=== PATIENT | female | born 1965 | race Caucasian/White ===

== ENCOUNTER 2020-07-10 09:56 | Outpatient (CLI) | payer BC, SELFPAY ==
[2020-07-10 10:29] LABS: Basophils Percent Auto 0.6 % (0.2-1.2); Eosinophils Absolute Auto 0.2 K/mm3 (0-0.3); Hematocrit 38.4 % (37.0-47.0); Hemoglobin 12.3 g/dL (12.0-15.0); Immature Granulocyte Absolute 0.01 K/mm3 (0.00-0.031); Immature Granulocyte Percent A 0.2 % (0-0.5); Lymphocytes Absolute Auto 1.43 K/mm3 (0.9-3.2); Lymphocytes Percent Auto 28.4 % (18.3-44.2); Mean Corpuscular Hemoglobin 29.1 pg (26-34); Mean Platelet Volume 10.2 fl (7.4-10.4); Monocytes Absolute Auto 0.5 K/mm3 (0.1-0.6); Monocytes Percent Auto 10.1 % (2.6-8.5); Neutrophils Absolute Auto 2.9 K/mm3 (1.3-6.7); Neutrophils Percent Auto 56.7 % (45.5-73.1); Platelet Count Result 258 k/mm3 (150-375); Red Blood Count 4.22 M/mm3 (4.2-5.4); Red Cell Distribution Width 13.8 % (11.5-14.5)
[2020-07-10 10:38] LABS: Add Urine Microscopic? YES; Appearance Urine Clear (Clear); Bacteria Urine Trace /hpf; Bilirubin Urine Negative (Negative); Blood Urine Negative (Negative); Color Urine Yellow (Yellow); Glucose Urine UA Negative (Negative); Ketones Urine Negative (Negative); Leukocyte Esterase Ur 3+ LEU/UL (NEGATIVE); Mucus Urine Few /lpf; Nitrate Urine Negative (Negative); Protein Urine Negative (Negative); Squamous Epithelial Cell Urine Moderate /hpf (Few); Transitional Epi Cells Urine Rare /hpf (None Seen); Urobilinogen Urine Negative mg/dL (<2.0); WBC Urine 16-20 /hpf (0-3)
[2020-07-10 10:45] LABS: Alanine Aminotransferase 22 U/L (4-35); Albumin Level 4.3 g/dL (3.5-5.1); Alkaline Phosphatase 88 U/L (38-126); Anion Gap 4 mmol/L (8-16); Aspartate Amino Transferase 32 U/L (14-36); Bilirubin,Total 0.8 mg/dL (0.2-1.3); Blood Urea Nitrogen 16 mg/dL (7-17); Calcium 9.7 mg/dL (8.4-10.2); Carbon Dioxide 31 mmol/L (22-30); Chloride 104 mmol/L (98-107); Cholesterol 215 mg/dL (0-200); Estimated Glomerular Filt Rate > 60; Glucose 93 mg/dL (65-105); HDL Direct 90 mg/dL; Potassium 4.4 mmol/L (3.4-5.0); Sodium 139 mmol/L (137-145); Triglycerides 67 mg/dL (<150)
[2020-07-10 10:56] LABS: LDL Cholesterol Direct 86 mg/dL
[2020-07-10 11:21] LABS: Vitamin D 25 Hydroxy 65.2 ng/mL
[2020-07-10 11:49] LABS: Folic Acid 10.2 ng/mL (2.76->20); Vitamin B12 > 1000.0 pg/mL (239-931)
[2020-07-10 12:00] LABS: Iron 157 ug/dL (37-170); Percent Iron Saturation 51 % (20-50)
== END 2020-07-10 09:57 | disposition home or self-care (01) ==
PROVIDERS: PCP Family Medicine; Visit Provider Family Medicine
DX: Z00.00 Encounter for general adult medical examination without abnormal findings (principal)
CPT/HCPCS: 36415; 80053; 80061; 81001; 82306; 82607; 82746; 83540; 83550; 84443; 85025

== ENCOUNTER 2022-05-16 11:10 | Outpatient (CLI) | payer BC, SELFPAY ==
[2022-05-16 12:32] LABS: Basophils Percent Auto 0.8 % (0.2-1.2); Eosinophils Absolute Auto 0.3 K/mm3 (0-0.3); Hematocrit 38.3 % (37.0-47.0); Hemoglobin 12.1 g/dL (12.0-15.0); Immature Granulocyte Absolute 0.01 K/mm3 (0.00-0.031); Immature Granulocyte Percent A 0.2 % (0-0.5); Lymphocytes Absolute Auto 1.36 K/mm3 (0.9-3.2); Lymphocytes Percent Auto 27.8 % (18.3-44.2); Mean Corpuscular HGB Conc 31.6 g/dl (32-36); Mean Corpuscular Hemoglobin 29.8 pg (26-34); Mean Corpuscular Volume 94.3 fl (80-100); Monocytes Absolute Auto 0.5 K/mm3 (0.1-0.6); Neutrophils Absolute Auto 2.7 K/mm3 (1.3-6.7); Neutrophils Percent Auto 54.2 % (45.5-73.1); Platelet Count Result 241 k/mm3 (150-375); Red Blood Count 4.06 M/mm3 (4.2-5.4); Red Cell Distribution Width 14.4 % (11.5-14.5); White Blood Count 4.9 K/mm3 (4.5-10.0)
[2022-05-16 12:34] LABS: Appearance Urine Clear (Clear); Bilirubin Urine Negative (Negative); Blood Urine Negative (Negative); Color Urine Yellow (Yellow); Glucose Urine UA Negative (Negative); Ketones Urine Negative (Negative); Leukocyte Esterase Ur 1+ LEU/UL (NEGATIVE); Nitrate Urine Negative (Negative); Protein Urine Negative (Negative); Urobilinogen Urine 0.2 mg/dL (<2.0); pH Urine 5.5 (5.0-9.0)
[2022-05-16 12:43] LABS: Alanine Aminotransferase 23 U/L (6-35); Albumin Level 4.2 g/dL (3.5-5.1); Alkaline Phosphatase 75 U/L (38-126); Anion Gap 8 mmol/L (8-16); Aspartate Amino Transferase 32 U/L (14-36); Bilirubin,Total 0.7 mg/dL (0.2-1.3); Blood Urea Nitrogen 21 mg/dL (7-17); Calcium 9.2 mg/dL (8.4-10.2); Carbon Dioxide 27 mmol/L (22-30); Chloride 103 mmol/L (98-107); Cholesterol 199 mg/dL (0-200); Estimated Glomerular Filt Rate > 60; Glucose 78 mg/dL (65-110); HDL Direct 96 mg/dL; Potassium 4.3 mmol/L (3.4-5.0); Sodium 138 mmol/L (137-145); Triglycerides 37 mg/dL (<150)
[2022-05-16 12:45] LABS: Mucus Urine Rare /lpf; RBC Urine 0-2 /hpf (0-2); Squamous Epithelial Cell Urine Occasional /hpf (Few); WBC Urine 0-3 /hpf (0-3)
[2022-05-16 12:55] LABS: LDL Cholesterol Direct 68 mg/dL
[2022-05-16 13:23] LABS: Add Urine Microscopic? YES
[2022-05-16 14:00] LABS: Folic Acid 18.8 ng/mL (2.76->20); Vitamin B12 > 1000.0 pg/mL (239-931)
== END 2022-05-16 11:11 | disposition home or self-care (01) ==
LOC: ANHLAB 11:12
PROVIDERS: PCP Family Medicine; Visit Provider Nurse Practitioner Family
DX: Z00.00 Encounter for general adult medical examination without abnormal findings (principal); Z13.0 Encounter for screening for diseases of the blood and blood-forming organs and certain disorders involving the immune mechanism; Z13.6 Encounter for screening for cardiovascular disorders; Z13.29 Encounter for screening for other suspected endocrine disorder
CPT/HCPCS: 36415; 80053; 80061; 81001; 82607; 82746; 84443; 85025

== ENCOUNTER 2022-10-09 09:56 | Outpatient (CLI) | payer BC, SELFPAY ==
--- NOTE | 2022-10-09 11:00 | NEURO_ITS ---
Impression: # Complains of pain in right hand. # Mild evolving right Carpal Tunnel Syndrome, sensory more than motor. # No ulnar neuropathy. # Normal needle/EMG exam. # Clinical correlation recommended. Motor Nerve Conduction Upper Extremities Median Nerve Conduction Velocity (m/sec) Terminal Latency (msec) Response Voltage(mV) Elbow-Wrist Wrist Elbow Wrist Right 58 3.4 7 6 Left Ulnar Nerve Conduction Velocity (m/sec) Terminal Latency (msec) Response Voltage(mV) Above Elbow Below Elbow Wrist Above Elbow Below Elbow Wrist Right 56 2.4 6 7 Left F-Wave Latency Median (ms) Ulnar (ms) Right 27.8 26.5 Left Sensory Nerve Conduction Upper Extremities Median Nerve Stimulation Terminal Latency (msec) Wrist/Digit Response Voltage (uV) Wrist Right 4.0/4.0 25/45 Left Ulnar Nerve Stimulation Terminal Latency (msec) Wrist/Digit Response Voltage (uV) Wrist Right 2.9 31 Left Radial Nerve Terminal Latency (msec) Response Voltage(mV) Right 2.4 23 Left Left Right Muscles Examined Fibrillation Fasciculation Scarcity Voltage Duration Left Right Left Right Left Right Left Right Left Right Deltoid X Biceps X Brachioradialis Triceps X Pronator Teres X Ext Indicis X Ext Digitorum X Abd Poll Brev X 1st Dorsal Interosseus X Abd Dig Min MTDD
== END 2022-10-09 09:57 | disposition home or self-care (01) ==
LOC: ANHNEURO 09:57
PROVIDERS: PCP Family Medicine; Visit Provider Nurse Practitioner Family
DX: R20.0 Anesthesia of skin (principal); G56.01 Carpal tunnel syndrome, right upper limb
CPT/HCPCS: 95886; 95909

== ENCOUNTER 2023-07-04 09:19 | Outpatient (CLI) | payer BC, SELFPAY ==
[2023-07-04 10:11] LABS: Eosinophils Absolute Auto 0.1 K/mm3 (0-0.3); Eosinophils Percent Auto 3.4 % (0-4.4); Hematocrit 37.9 % (37.0-47.0); Immature Granulocyte Absolute 0.01 K/mm3 (0.00-0.031); Immature Granulocyte Percent A 0.2 % (0-0.5); Lymphocytes Absolute Auto 1.23 K/mm3 (0.9-3.2); Mean Corpuscular HGB Conc 31.7 g/dl (32-36); Mean Corpuscular Hemoglobin 29.4 pg (26-34); Mean Corpuscular Volume 92.9 fl (80-100); Mean Platelet Volume 10.9 fl (7.4-10.4); Monocytes Absolute Auto 0.5 K/mm3 (0.1-0.6); Neutrophils Absolute Auto 2.2 K/mm3 (1.3-6.7); Neutrophils Percent Auto 53.4 % (45.5-73.1); Platelet Count Result 234 k/mm3 (150-375); Red Blood Count 4.08 M/mm3 (4.2-5.4); White Blood Count 4.1 K/mm3 (4.5-10.0)
[2023-07-04 10:15] LABS: Appearance Urine Clear (Clear); Bacteria Urine None Seen /hpf; Bilirubin Urine Negative (Negative); Blood Urine Negative (Negative); Color Urine Yellow (Yellow); Glucose Urine UA Negative (Negative); Ketones Urine Negative (Negative); Leukocyte Esterase Ur Trace LEU/UL (NEGATIVE); Nitrate Urine Negative (Negative); Non Pathogenic Casts 0-2; Protein Urine Negative (Negative); RBC Urine 0-2 /hpf (0-2); Specific Grav Ur 1.012 (1.001-1.035); Squamous Epithelial Cell Urine None seen /hpf (Few); Urobilinogen Urine 0.2 mg/dL (<2.0); WBC Urine 0-5 /hpf (0-3); pH Urine 6.5 (5.0-9.0)
[2023-07-04 10:20] LABS: Alanine Aminotransferase 35 U/L (6-35); Albumin Level 4.3 g/dL (3.5-5.1); Alkaline Phosphatase 70 U/L (38-126); Anion Gap 5 mmol/L (8-16); Aspartate Amino Transferase 50 U/L (14-36); Bilirubin,Total 0.8 mg/dL (0.2-1.3); Blood Urea Nitrogen 29 mg/dL (7-17); Calcium 9.1 mg/dL (8.4-10.2); Carbon Dioxide 31 mmol/L (22-30); Chloride 103 mmol/L (98-107); Cholesterol 208 mg/dL (0-200); Estimated Glomerular Filt Rate > 60; Glucose 85 mg/dL (65-110); HDL Direct 103 mg/dL; Potassium 4.8 mmol/L (3.4-5.0); Sodium 139 mmol/L (137-145); Triglycerides 34 mg/dL (<150)
[2023-07-04 10:23] LABS: Add Urine Microscopic? YES
[2023-07-04 10:30] LABS: LDL Cholesterol Direct 79 mg/dL
[2023-07-04 10:50] LABS: Thyroid Stimulating Hormone 0.066 uIU/mL (0.465-4.680)
[2023-07-04 11:27] LABS: Folic Acid > 20.0 ng/mL (2.76->20)
== END 2023-07-04 09:20 | disposition home or self-care (01) ==
PROVIDERS: PCP Family Medicine; Visit Provider Nurse Practitioner Family
DX: Z13.0 Encounter for screening for diseases of the blood and blood-forming organs and certain disorders involving the immune mechanism (principal); Z13.29 Encounter for screening for other suspected endocrine disorder; Z00.00 Encounter for general adult medical examination without abnormal findings; E53.8 Deficiency of other specified B group vitamins
CPT/HCPCS: 36415; 80053; 80061; 81001; 82607; 82746; 84443; 85025

== ENCOUNTER 2023-07-31 06:53 | Outpatient (CLI) | payer BC, SELFPAY ==
[2023-07-31 08:11] LABS: Free T4 Free Thyroxine 0.99 ng/mL (0.78-2.19)
[2023-07-31 08:18] LABS: Total Triiodothyronine (T3) 1.23 NG/ML (0.97-1.69)
== END 2023-07-31 06:54 | disposition home or self-care (01) ==
PROVIDERS: PCP Family Medicine; Visit Provider Nurse Practitioner Family
DX: R79.89 Other specified abnormal findings of blood chemistry (principal)
CPT/HCPCS: 36415; 84439; 84443; 84480

== ENCOUNTER → 2024-06-14 13:18 | Outpatient (CLI) | payer BC, SELFPAY ==
--- NOTE | ~2024-06-14 | XR_ITS ---
XR finger 5th RT min 2V 06/14/2024 13:27 Indication: Right fifth finger pain after injury Procedure: 4 views right fifth finger Comparison: No prior studies for comparison. Findings: There is a displaced avulsion fracture dorsal base fifth distal phalanx with intra-articula r extension. Mild soft tissue swelling. Impression: 1: Intra-articular displaced fracture right fifth distal phalanx involving the dorsal base. Reviewed, dictated and finalized at location B. Impression: 1: Intra-articular displaced fracture right fifth distal phalanx involving the dorsal base.
== END ==
LOC: EXPTROY 13:19
PROVIDERS: PCP Nurse Practitioner Family; Visit Provider Nurse Practitioner Family
DX: S62.636A Displaced fracture of distal phalanx of right little finger, initial encounter for closed fracture (principal); X58.XXXA Exposure to other specified factors, initial encounter
CPT/HCPCS: 73140

== ENCOUNTER 2024-09-30 11:22 | Outpatient (CLI) | payer BC, SELFPAY ==
--- NOTE | ~2024-09-30 | XR_ITS ---
Right Knee Technique: AP, lateral, and sunrise views were obtained. Clinical History: Pain Findings: No fracture or dislocation is seen. Osseous alignment is anatomic. Joint spaces are preserv ed without degenerative or erosive change. Soft tissues are unremarkable. No joint effusion is seen. Impression: Unremarkable right knee radiographs. Reviewed, dictated and finalized at location . ATERIA ATTENDANT Impression: Unremarkable right knee radiographs.
[2024-09-30 12:31] LABS: Basophils Absolute Auto 0.1 K/mm3 (0.0-0.1); Basophils Percent Auto 0.6 % (0.2-1.2); Eosinophils Absolute Auto 0.1 K/mm3 (0-0.3); Eosinophils Percent Auto 1.7 % (0-4.4); Hematocrit 40.2 % (37.0-47.0); Hemoglobin 12.9 g/dL (12.0-15.0); Immature Granulocyte Absolute 0.04 K/mm3 (0.00-0.031); Immature Granulocyte Percent A 0.5 % (0-0.5); Lymphocytes Absolute Auto 1.54 K/mm3 (0.9-3.2); Lymphocytes Percent Auto 18.6 % (18.3-44.2); Mean Corpuscular HGB Conc 32.1 g/dl (32-36); Mean Corpuscular Hemoglobin 30.2 pg (26-34); Mean Corpuscular Volume 94.1 fl (80-100); Mean Platelet Volume 10.5 fl (7.4-10.4); Monocytes Absolute Auto 0.8 K/mm3 (0.1-0.6); Neutrophils Absolute Auto 5.8 K/mm3 (1.3-6.7); Neutrophils Percent Auto 69.6 % (45.5-73.1); Platelet Count Result 285 k/mm3 (150-375); Red Blood Count 4.27 M/mm3 (4.2-5.4); Red Cell Distribution Width 14.8 % (11.5-14.5); White Blood Count 8.3 K/mm3 (4.5-10.0)
[2024-09-30 12:36] LABS: Add Urine Microscopic? YES; Appearance Urine Cloudy (Clear); Bacteria Urine 2+ /hpf; Bilirubin Urine Negative (Negative); Blood Urine Negative (Negative); Color Urine Yellow (Yellow); Glucose Urine UA Negative (Negative); Ketones Urine Negative (Negative); Leukocyte Esterase Ur Negative LEU/UL (Negative); Nitrate Urine Negative (Negative); Non Pathogenic Casts 0-2; Protein Urine Negative (Negative); Specific Grav Ur 1.011 (1.001-1.035); Squamous Epithelial Cell Urine Many /hpf (Few); Urobilinogen Urine 0.2 mg/dL (<2.0); WBC Urine 0-5 /hpf (0-3)
[2024-09-30 12:44] LABS: Alanine Aminotransferase 30 U/L (6-35); Albumin Level 4.4 g/dL (3.5-5.1); Alkaline Phosphatase 54 U/L (38-126); Anion Gap 5 mmol/L (4-12); Aspartate Amino Transferase 39 U/L (14-36); Bilirubin,Total 0.8 mg/dL (0.2-1.3); Blood Urea Nitrogen 20 mg/dL (7-17); Calcium 9.1 mg/dL (8.4-10.2); Carbon Dioxide 28 mmol/L (22-30); Chloride 105 mmol/L (98-107); Cholesterol 208 mg/dL (0-200); Estimated Glomerular Filt Rate > 60; Glucose 82 mg/dL (65-110); HDL Direct 83 mg/dL; Potassium 4.1 mmol/L (3.4-5.0); Sodium 138 mmol/L (137-145); Triglycerides 75 mg/dL (<150)
[2024-09-30 12:56] LABS: LDL Cholesterol Direct 86 mg/dL
[2024-09-30 13:19] LABS: Thyroid Stimulating Hormone Reflex 0.076 uIU/mL (0.465-4.68)
[2024-09-30 17:33] LABS: Free T4 Free Thyroxine Reflex 0.87 ng/dL (0.78-2.19)
[2024-09-30 18:08] LABS: Rheumatoid Factor < 12.0 IU/ML (<12)
[2024-09-30 18:21] LABS: Total Triiodothyronine (T3) 1.25 NG/ML (0.97-1.69)
[2024-10-03 16:08] LABS: ANA Cascade Screen NEGATIVE (NEGATIVE)
== END 2024-09-30 11:23 | disposition home or self-care (01) ==
PROVIDERS: PCP Nurse Practitioner Family; Visit Provider Nurse Practitioner Family
DX: M25.561 Pain in right knee (principal); Z13.0 Encounter for screening for diseases of the blood and blood-forming organs and certain disorders involving the immune mechanism; Z13.29 Encounter for screening for other suspected endocrine disorder; Z00.00 Encounter for general adult medical examination without abnormal findings; Z13.6 Encounter for screening for cardiovascular disorders; E53.8 Deficiency of other specified B group vitamins; M25.50 Pain in unspecified joint
CPT/HCPCS: 36415; 73562; 80053; 80061; 81001; 82607; 84439; 84443; 84480; 85025; 86038; 86225; 86235; 86364; 86430

== ENCOUNTER 2024-10-21 13:35 | Outpatient (CLI) | payer BC, SELFPAY ==
[2024-10-21 15:23] LABS: Free T4 Free Thyroxine 0.99 ng/dL (0.78-2.19)
== END 2024-10-21 13:36 | disposition home or self-care (01) ==
LOC: ANHLAB 13:36
PROVIDERS: PCP Nurse Practitioner Family; Visit Provider Nurse Practitioner Family
DX: R79.89 Other specified abnormal findings of blood chemistry (principal)
CPT/HCPCS: 36415; 84439; 84443

== ENCOUNTER 2025-03-30 13:49 | Outpatient (CLI) | payer BC, SELFPAY ==
--- NOTE | ~2025-03-30 | XR_ITS ---
XR hand BI arthritis min 3V Ordering provider: Treva Cannon NP History: . M25.541 - Pain in joints of right hand . Comparison: None. FINDINGS: RIGHT HAND: --BONES: No acute fracture or dislocation. No osteopenia. --JOINT SPACES: Narrowing of multiple distal and proximal interphalangeal joints with marginal osteop hytes. --SOFT TISSUES: Soft tissue swelling in multiple joints. LEFT HAND: --BONES: No acute fracture or dislocation. --JOINT SPACES: Narrowing of multiple joints in the distal interphalangeal joints. Marginal osteophyt es are noted. --SOFT TISSUES: Unremarkable. No soft tissue swelling or nodules. IMPRESSION: 1. No acute osseous abnormality bilateral hands. 2. Polyarticular osteoarthritic changes. Reviewed, dictated and finalized at location A.
--- OUTSIDE RECORDS SUMMARY | 2025-03-30 14:25 | XMS_ITS | Referral Summary ---
Author Organization [facility] Office Center Address [address] [place] [address] Care Team Providers Care Manager Procurement Name Role Phone Antonio Davidson MD Primary Care Provider [phone] Encounters Date Type Department Care Team Description 03/17/2025 Telephone [facility] Obstetrical Gynecology [facility] [address] Tim Chen MD from Last 3 Months Allergies No known active allergies Medications aloe vera gel Rx: Aloe Vera - Gel Active vitamin B complex (B COMPLEX 1 ORAL) Active FLUoxetine (PROzac) 20 mg capsuleIndicat ions:Well woman exam Take 1 capsule (20 mg total) by mouth daily 90 capsule 3 4 Active estradiol-nore thindrone acet (CombiPatch) 0.05-0.14 mg/24 hrIndications: Menopausal symptoms Place 1 patch on the skin 2 (two) times a week 24 patch 5 Active estradiol-nore thindrone acet (CombiPatch) 0.05-0.14 mg/24 hrIndications: Menopausal symptoms APPLY 1 PATCH ON THE SKIN TWICE A WEEK (MUST CALL TO SCHEDULE APPOINTMENT FOR FUTURE REFILLS) 24 patch 1 4 03/17/20 25 Discontin ued(Reord er) Active Problems No known active problems Social History Tobacco Use Types Packs/Day Years Used Date Smoking Tobacco: Never Alcohol Use Standard Drinks/Week Comments Yes 0 (1 standard drink = 0.6 oz pur e alcohol) AUDIT-C Answer Date Recorded Frequency of Alcohol Consumption Monthly or less 07/18/2020 Average Number of Drinks 1 or 2 020 Frequency of Binge Drinking Never 06/21 Personal Safety Answer Date Recorded Getting School Help Needed Not on file 10/04 Comments No Sex and Gender Information Value Date Recorded Sex Assigned at Not on file Legal Sex Female 6:27 AM CRAP SHOOTER Gender Identity Not on file Sexual Orientation Not on file Last Filed Vital Signs Vital Sign Reading Time Taken Comments Blood Pressure 116/78 04/01/2024 1:57 PM CDT Pulse 62 12/14/2012 2:40 PM CRAP SHOOTER Temperature 37.1 C (98.8 F) 12/14/2012 2:40 PM CRAP SHOOTER Respiratory Rate - - Oxygen Saturation 96% 12/14/2012 2:40 PM CRAP SHOOTER Inhaled Oxygen Concentration - - Weight 61.2 kg (135 lb) 04/01/2024 1:57 PM CDT Height 160 cm (5' 2.99) 04/01/2024 1:57 PM CDT Body Mass Index 23.92 04/01/2024 1:57 PM CDT Plan of Treatment Not on file Procedures Procedure Name Priority Date/Time Associated Diagnosis Comments SCREENING MAMMOGRAM BILATERAL W RICHAR W IMPLANTS Schedule Routine, Read Routine (OP Routine) 03/29/2024 2:26 PM CDT Encounter for screening mammogram for malignant neoplasm of breast PAP AND HIGH RISK HPV, REFLEX TO GENOTYPING Routine 09/05/2022 11:32 AM CRAP SHOOTER Well woman exam from Last 3 Months or Most Recently Relevant to Health Maintenance Results * Screening Mammogram Bilateral W Richar W Implants (03/29/2024 2:26 PM CDT) Anatomical Region Laterality Modality Breast Bilateral Mammography Impressions 03/29/2024 2:39 PM CDT BI-RADS ATLAS category (overall): 2 - Benign There is no mammographic evidence of malignancy. A 1 year screening mammogram is recommended. The patient has been or will be contacted. We recommend annual screening mammography for women at average risk of breast cancer beginning at age 40, based on guidelines of the [employer] (ACR Practice Parameter for the Performance of Screening and Diagnostic Mammography) and [employer]. For women with and elevated risk of breast cancer, please refer to the ACR Practice Parameter for specific screening recommendations. The patient will be entered into a reminder system with a target due date of 1 year for her next screening exam. Narrative 03/29/2024 2:39 PM CDT Screening Mammogram Bilateral W Richar W Implants: 03/29/24 The study was acquired using full field digital technology and interpreted from soft copy. 2D digital mammographic views, as well as 3D digital tomosynthesis were performed in the CC and MLO projections. CLINICAL: Encounter for screening mammogram for malignant neoplasm of breast. No relevant medical history has been documented for this patient. History of breast cancer in Sister. COMPARISONS: 11/26/2022 Screening Mammogram Bilateral W Richar W Implants 06/10/2021 Screening Mammogram Bilateral W Richar W Implants 06/29/2018 Screening Mammogram 2D Bilateral 09/30/2016 Screening Mammogram Bilateral W Richar BREAST TISSUE: The breasts are heterogeneously dense, which may obscure small masses. FINDINGS: Bilateral breast subpectoral saline implants are stable in appearance and intact. The presence of implants limits the sensitivity of mammography. No suspicious masses, suspicious calcifications, or other suspicious findings are seen within either breast. There has been no suspicious change. Tim Chen MD IMG MAMMO PROCEDURES Fi nal Result * Pap and High Risk HPV, reflex to Genotyping (09/05/2022 11:32 AM CRAP SHOOTER) Thin prep (Pap test) 09/05/2022 11:32 AM CRAP SHOOTER 09/08/2022 11:32 AM CRAP SHOOTER Narrative PATHOLOGY [facility] - 09/12/2022 1:09 PM CRAP SHOOTER [facility] Department of Pathology [address] [place] [id number] Final Report with Addendum Note to Patients: This report may contain a detailed description of human tissue sent by a health care provider to the laboratory for pathologic evaluation. The content of this report is essential for diagnosis and may provide important critical findings. This information may be unfamiliar to patients to review without a medical professional present. It is advised that the patient review this report in the presence of a health care provider who can answer questions and explain the details. Patient Name: ALE BLANCO Address: [address] [place] [address] Gender: F : 1965 (Age: 57) Service: Location: [facility] #: [id number] Patient Type: B SPECIMEN Taken: 09/05/2022 Received: 09/08/2022 Accessioned:: 09/09/2022 Reported: 09/12/2022 Physician(s): Tim Chen M.D. [facility] Diagnosis: Source of Specimen: SCREENING THIN PREP IMAGED PAP w/ HPV Specimen Adequacy: - Specimen satisfactory for interpretation; indeterminate endocervical component due to marked atrophy General Category: - Negative for intraepithelial lesion or malignancy YEHUDA Harmon(ASCP) Report Electronically Reviewed and Signed Out By REECE HarmonASCP) 09/12/2022 13:09:52Addenda: HPV Test Interpretation NEGATIVE for types 16, 18, 31, 33, 35, 39, 45, 51, 52, 56, 58, 59, 66 and 68. Test performed utilizing Gen-Probe Aptima assay. YEHUDA Harmon(ASCP)Report Electronically Reviewed and Signed Out By REECE HarmonASCP) 09/10/2022 17:05:29 Specimen(s) Received: A: SCREENING THIN PREP IMAGED PAP w/ HPV Clinical History: Menstrual History: Ablation The Pap test is a screening test used to aid in the detection of cervical cancer and its precursors. It should not be the sole means by which malignant and premalignant lesions are diagnosed. Both false negative and false positive results may occur. It also has poor sensitivity for the detection of endometrial lesions and should not be used to evaluate suspected endometrial abnormalities. For these reasons it is most important to obtain Pap tests at regular intervals. The performance characteristics of some immunohistochemical stains, fluorescence in-situ hybridization tests and immunophenotyping by flow cytometry cited in this report (if any) were determined by the Surgical Pathology Department at [facility] as part of an ongoing water quality manager program and in compliance with federally mandated regulations drawn from the Clinical Laboratory Improvement Act of 1988 (CLIA '88). Some of these tests rely on the use of analyte specific reagents and are subject to specific labeling requirements by the US Food and Drug Administration. Such diagnostic tests may only be performed in a facility that is certified by the Department of Health and Human Services as a high complexity laboratory under CLIA '88. The FDA has determined that such clearance or approval is not necessary. This test is used for clinical purposes. It should not be regarded as investigational or for research. Nevertheless, federal rules concerning the medical use of analyte specific reagents require that the following disclaimer be attached to the report: This test was developed and its performance characteristics determined by the Surgical Pathology Department [facility]. It has not been cleared or approved by the U. S. Food and Drug Administration. Tim Chen MD LAB CYTOLOGY ORDERABLES Final Result PATHOLOGY [facility] from Last 3 Months or Most Recently Relevant to Health Maintenance Insurance [employer] [facility] Care Teams Manager Procurement Relationship Specialty Start Date End Date Antonio Davidson MD [address] [address] PCP - General Family Medicine 07/18/20
--- OUTSIDE RECORDS SUMMARY | 2025-03-30 14:25 | XMS_ITS | Clinical Summary ---
Author Organization [facility] at the [facility] Office Center Address [address] [place] [address] Care Team Providers Care Hydro Plant Technician Name Role Phone Antonio Davidson MD Primary Care Provider [phone] [phone] Allergies No known active allergies Medications aloe [...] er) Active Problems No known active problems Encounters Date Type Department Care Team Description 03/17/2025 Telephone [facility] Obstetrical Gynecology [address] [place] [address] [place] [phone] Tim Chen MD from Last 3 Months Surgical History Surgery Date Site/Laterality Comments AUGMENTATION MAMMAPLASTY Medical History Medical History Date Comments History of abnormal cervical Pap smear Constipation Family History Medical History Relation Name Comments Diabetes Other Heart failure Other Breast cancer Sister Ovarian cancer Neg Hx Relation Name Status Comments Other Sister Social History Tobacco Use Types Packs/Day Years [...] on file Legal Sex Female 6:27 AM DISTRICT FIRE CHIEF Gender Identity Not on file Sexual Orientation Not on file Obstetrics History Para Term AB IAB SAB Ectopic Multiple Livin g Live Births 2 1 1 1 1 Date Outcome GA Total Labor Labor//3rd Weight Sex Type Anes PTL [place] A1 A5 Name Clin Term SAB Comments Also has one adopted child /unsure juanita - ablation 04/11 LTR 21.5% Last Filed Vital Signs Vital Sign Reading Time Taken Comments Blood Pressure 116/78 04/01/2024 1:57 PM CDT Pulse 62 12/14/2012 2:40 PM DISTRICT FIRE CHIEF Temperature 37.1 C (98.8 F) 12/14/2012 2:40 PM DISTRICT FIRE CHIEF Respiratory Rate - - Oxygen Saturation 96% 12/14/2012 2:40 PM DISTRICT FIRE CHIEF Inhaled Oxygen Concentration - - Weight 61.2 kg (135 lb) 04/01/2024 1:57 PM CDT Height 160 cm (5' 2.99) 04/01/2024 1:57 PM CDT Body Mass Index 23.92 04/01/2024 1:57 PM CDT Plan of Treatment Health Maintenance Due Date Last Done Comments Colon Cancer Screening-Colonoscopy 1965 Depression Screening 1965 Hepatitis C Screening 1965 DTaP/Tdap/Td Vaccine (1 - Tdap) 02/15/1975 Hepatitis B Screening 02/15/1982 Zoster Vaccine (1 of 2) 02/15/2014 Cervical Cancer Screening 09/05/20232021, 07/18/2020, 03/22/2019, Additional history exists Covid-19 Vaccine ( season) 2024 12/21/2020 Regular Well Visit/Exam 18-64 12/08/2024 12/08/2023, 09/05/2022, 07/18/2020, Additional history exists Breast Cancer Screening-Mammogram 03/29/2025 03/29/2024, 11/26/2022, 06/10/2021, Additional history exists Influenza Vaccine (Season Ended) 2025 Pneumococcal vaccine <65 Aged Out No longer eligible based on patient's age to complete this topic Procedures Procedure Name Priority Date/Time Associated Diagnosis Comments SCREENING MAMMOGRAM BILATERAL W RICHAR W IMPLANTS Schedule Routine, Read Routine (OP Routine) 03/29/2024 2:26 PM CDT Encounter for screening mammogram for malignant neoplasm of breast PAP AND HIGH RISK HPV, REFLEX TO GENOTYPING Routine 09/05/2022 11:32 AM DISTRICT FIRE CHIEF Well woman exam from Last 3 Months [...] age 40, based on guidelines of the [employer] (ACR Practice Parameter for the Performance of Screening and Diagnostic Mammography) and [employer]. For women [...] breast. There has been no suspicious change. us Tim Chen MD IMG MAMMO PROCEDURES Fi nal Result * Pap and High Risk HPV, reflex to Genotyping (09/05/2022 11:32 AM DISTRICT FIRE CHIEF) Thin prep (Pap test) 09/05/2022 11:32 AM DISTRICT FIRE CHIEF 09/08/2022 11:32 AM DISTRICT FIRE CHIEF Narrative PATHOLOGY [facility] - 09/12/2022 1:09 PM DISTRICT FIRE CHIEF [facility] Department of Pathology [address] [place], [place] [id number] Final Report with Addendum Note to Patients: [...] the details. Patient Name: ALE BLANCO Address: [address] [place] [address] Gender: F : 1965 (Age: 57) Service: Location: [facility] #: [id number] Patient Type: [facility] SPECIMEN Taken: 09/05/2022 Received: 09/08/2022 Accessioned:: 09/09/2022 Reported: 09/12/2022 Physician(s): Tim Chen M.D. [facility] Diagnosis: Source of Specimen: SCREENING THIN PREP [...] determined by the Surgical Pathology Department at [facility] as part of an ongoing vice president quality program and in compliance with federally mandated [...] characteristics determined by the Surgical Pathology Department [facility]. It has not been cleared or approved by the U. S. Food and Drug Administration. Tim Chen MD LAB CYTOLOGY ORDERABLES Final Result [facility] from Last 3 Months or Most Recently Relevant to Health Maintenance Insurance [employer] [place] Care Teams Hydro Plant Technician Relationship Specialty Start Date End Date Antonio Davidson MD [address] [place] [id number] PCP - General Family Medicine 07/18/20
[2025-03-30 14:55] LABS: Rheumatoid Factor < 12.0 IU/ML (<12)
[2025-03-31 19:52] LABS: CRP, High Sensitivity 1.1 mg/L
[2025-04-01 03:09] LABS: ANA Cascade Screen NEGATIVE (NEGATIVE)
== END 2025-03-30 13:50 | disposition home or self-care (01) ==
PROVIDERS: PCP Nurse Practitioner Family; Visit Provider Nurse Practitioner Family
DX: M19.042 Primary osteoarthritis, left hand (principal); M19.041 Primary osteoarthritis, right hand
CPT/HCPCS: 36415; 73130; 86038; 86141; 86225; 86235; 86364; 86430

== ENCOUNTER 2025-04-12 14:22 | Outpatient (CLI) | payer BC, SELFPAY ==
[2025-04-12 15:21] LABS: Uric Acid 3.6 mg/dL (2.5-7.5)
== END 2025-04-12 14:23 | disposition home or self-care (01) ==
LOC: ANHLAB 14:24
PROVIDERS: PCP Nurse Practitioner Family; Visit Provider Nurse Practitioner Family
DX: M25.50 Pain in unspecified joint (principal)
CPT/HCPCS: 36415; 84550

== ENCOUNTER 2025-06-01 13:48 | Outpatient (CLI) | payer BC, SELFPAY ==
--- NOTE | ~2025-06-01 | XR_ITS ---
XR lumbar spine 2-3V, XR sacroiliac joints min 3V 06/01/2025 14:17 Indication: Arthritis Procedure: 3 views lumbar spine and 3 views sacroiliac joints Comparison: No prior studies for comparison. Findings: Normal lumbar lordosis. There is mild multilevel disc narrowing. Mild facet hypertrophy at L5-S1. No fracture, subluxation or dislocation. Pedicles intact. Sacral foramen are symmetric. No sig nificant abnormality of the sacroiliac joints bilaterally. Impression: 1: Mild lumbar spondylosis. Reviewed, dictated and finalized at location A. Impression: 1: Mild lumbar spondylosis. Impression: 1: Mild lumbar spondylosis.
--- NOTE | ~2025-06-01 | XR_ITS ---
EXAMINATION: XR foot LT 2V DATE: 06/01/2025 14:17 INDICATION: Other specified arthritis TECHNIQUE: There are 2 images the left foot were obtained. COMPARISON: None. FINDINGS: Moderate degenerative change in the first metatarsophalangeal joint adjacent soft tissue swelling. Tito ne mineralization is within normal limits. No fracture. No dislocation. IMPRESSION: 1. Moderate degenerative change in the first metatarsophalangeal joint adjacent soft tissue swelling. Reviewed, dictated and finalized at location A.
--- NOTE | ~2025-06-01 | XR_ITS ---
EXAMINATION: XR foot RT 2V DATE: 06/01/2025 14:17 INDICATION: Other specified arthritis TECHNIQUE: 2 images of the right foot were obtained COMPARISON: None. FINDINGS: Moderate to severe degenerative change in the first metatarsophalangeal joint with adjacent soft tiss ue swelling. No fracture. No dislocation. Mild soft tissue swelling about the right foot. Bone minera lization is within normal limits. Moderate degenerative change in the interphalangeal joint of the gr eat toe with adjacent soft tissue swelling. IMPRESSION: 1. Moderate to severe degenerative change in the first metatarsophalangeal joint with adjacent soft t issue swelling. 2. Moderate degenerative change in the interphalangeal joint of the great toe with adjacent soft tiss ue swelling. Reviewed, dictated and finalized at location A. IMPRESSION: 1. Moderate to severe degenerative change in the first metatarsophalangeal join t with adjacent soft tissue swelling. 2. Moderate degenerative change in the interphalangeal joint of the great toe w ith adjacent soft tissue swelling.
--- OUTSIDE RECORDS SUMMARY | 2025-06-01 13:52 | XMS_ITS | Encounter Summary ---
Author Organization [facility] Healthcare Address [address] [place] [address] Care Team Providers Care Livestock Judging Coach Name Role Phone Antonio Davidson MD Primary Care Provider [phone] [phone] Encounter Details Date Type Department Care Team (Late st Contact Info) Description 05/19/2025 Results Follow-Up [facility] Group Obstetrical Gynecology [address] [facility] [address] [place] [address] Tim Chen MD [address] [facility] [address] [place], [place] [id number] Pap and High Risk HPV and Genotyping (Cytology Component) Social History Tobacco Use Types Packs/Day Years Used Date Smoking Tobacco: Never Alcohol Use Standard Drinks/Week Comments Yes 0 (1 standard drink = 0.6 oz pur e alcohol) AUDIT-C Answer Date Recorded Frequency of Alcohol Consumption Monthly or less 07/18/2020 Average Number of Drinks 1 or 2 020 Frequency of Binge Drinking Never 06/21 Comments No Sex and Gender Information Value Date Recorded Sex Assigned at Not on file Legal Sex Female 6:27 AM TOOL AND DIE MAKER/DESIGNER Gender Identity Not on file Sexual Orientation Not on file documented as of this encounter Miscellaneous Notes * Result Encounter Note - Tim Chen MD - 05/19/2025 1:03 PM CDT Good news. Your Pap smear is normal. documented in this encounter Plan of Treatment Not on file documented as of this encounter Visit Diagnoses Not on filedocumented in this encounter Care Teams Livestock Judging Coach Relationship Specialty Start Date End Date Antonio Davidson MD [address] [address] PCP - General Family Medicine 07/18/20 documented as of this encounter
--- OUTSIDE RECORDS SUMMARY | 2025-06-01 13:52 | XMS_ITS | Encounter Summary ---
Author Organization [facility] Healthcare Address [address] [place] [address] Care Team Providers Care Director Financial Analysis Name Role Phone Antonio Davidson MD Primary Care Provider [phone] [phone] Encounter Details Date Type Department Care Team (Late st Contact Info) Description 05/05/2025 Results Follow-Up [facility] Group Obstetrical Gynecology [address] [facility] [address] [place] [address] Tim Chen MD [address] [facility] [address] [place] [address] Screening Mammogram Bilateral W Richar W Implants Social History Tobacco Use Types Packs/Day Years [...] on file Legal Sex Female 6:27 AM SMOKE AND FLAME SPECIALIST Gender Identity Not on file Sexual Orientation Not on file documented as of this encounter Plan of Treatment Not on file documented as of this encounter Visit Diagnoses Not on filedocumented in this encounter Care Teams Director Financial Analysis Relationship Specialty Start Date End Date Antonio Davidson MD [address] [address] PCP - General Family Medicine 07/18/20 documented as of this encounter
--- OUTSIDE RECORDS SUMMARY | 2025-06-01 13:52 | XMS_ITS | Clinical Summary ---
Author Organization [facility] Office Center Address [address] [place] [address] Care Team Providers Care Cable Reeler Name Role Phone Antonio Davidson MD Primary Care Provider [phone] Allergies No known active allergies Medications aloe vera gel Rx: Aloe Vera - Gel Active vitamin B complex (B COMPLEX 1 ORAL) Acti ve FLUoxetine (PROzac) 20 mg capsuleIndicati ons:Well woman exam TAKE 1 CAPSULE DAILY 90 capsule 5 Active hydroxychloroqu ine (PLAQUENIL) 200 mg tablet Take 2 tablets (400 mg total) by mouth daily 5 Active Linzess 290 mcg capsule Take 1 capsule (290 mcg total) by mouth daily 5 Active meloxicam (MOBIC) 15 mg tablet Take 1 tablet (15 mg total) by mouth daily 5 Active cephalexin (KEFLEX) 500 mg capsule TAKE 1 CAPSULE BY MOUTH EVERY 8 HOURS 5 Active melatonin 5 mg tablet,disinteg rating Take by mouth Active estradioL (VIVELLE-DOT) 0.05 mg/24 hrIndications:M enopausal symptoms Place 1 patch on the skin 2 (two) times a week 24 patch 3 5 Active progesterone (PROMETRIUM) 100 mg capsuleIndicati ons:Menopausal symptoms Take 1 capsule (100 mg total) by mouth daily 90 capsule 3 5 05/15/20 26 Active estradiol-noret hindrone acet (CombiPatch) 0.05-0.14 mg/24 hrIndications:M enopausal symptoms Place 1 patch on the skin 2 (two) times a week 24 patch 05/15/20 25 Discontinu ed(Alterna te therapy) Active Problems No known active problems Encounters Date Type Department Care Team Description 05/19/2025 Results Follow-Up [facility] Obstetrical Gynecology [address] [place] [phone] Tim Chen MD Pap and High Risk HPV and Genotyping (Cytology Component) 05/15/2025 6:34 PM CDT - 05/15/2025 11:59 PM CDT Hospital Encounter [facility] [address] [place] [phone] Well woman exam Discharge Disposition: Discharge to home or self care 05/15/2025 3:15 PM CDT Office Visit [facility] Obstetrical Gynecology [address] [place] [phone] Tim Chen MD Menopausal symptoms (Primary Dx); Well woman exam; Vaginal atrophy; Dense breasts; Increased risk of breast cancer 05/05/2025 Results Follow-Up [facility] Obstetrical Gynecology [address] [place] [phone] Tim Chen MD Screening Mammogram Bilateral W Richar W Implants 05/04/2025 3:15 PM CDT - 05/04/2025 11:59 PM CDT Hospital Encounter [facility] Bld[facility] [address] [place] [address] [address] [place] [address] Screening mammogram, encounter for Discharge Disposition: Discharge to home or self care 03/17/2025 Telephone [facility] Obstetrical Gynecology [address] [place] [address] [place] [phone] Tim Chen MD from Last 3 Months Surgical History Surgery Date Site/Laterality Comments AUGMENTATION MAMMAPLASTY CARPAL TUNNEL RELEASE 10/19/2022 Medical History Medical History Date Comments History [...] on file 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 Gender Identity Not on file Sexual Orientation Not on file Obstetrics History Para Term AB IAB SAB Ectopic Multiple Livin g Live Births 2 1 1 1 1 1 Date Outcome GA Total Labor Labor/2nd/3rd Weight Sex Type Anes PTL [place] A1 A5 Name Clin Term SAB Comments Also has one adopted child /unsure juanita - ablation 04/11 LTR 21.5% Last Filed Vital Signs Vital Sign Reading Time Taken Comments Blood Pressure 126/68 05/15/2025 3:12 PM CDT Pulse 62 12/14/2012 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 Temperature 37.1 C (98.8 F) 12/14/2012 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 Respiratory Rate - - Oxygen Saturation 96% 12/14/2012 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 Inhaled Oxygen Concentration - - Weight 62.9 kg (138 lb 9.6 oz) 05/15/2025 3:12 P M CDT Height 160 cm (5' 3) 05/15/2025 3:12 PM CDT Body Mass Index 24.55 05/15/2025 3:12 PM CDT Plan of Treatment Health Maintenance Due Date Last Done Comments Colon Cancer Screening-Colonoscopy 1965 Depression Screening 1965 Hepatitis C Screening 1965 DTaP/Tdap/Td Vaccine (1 - Tdap) 02/15/1975 Hepatitis B Screening 02/15/1982 Pneumococcal vaccine <65 (1 of 2 - PCV) 02/15/1983 Zoster Vaccine (1 of 2) 02/15/1983 Covid-19 Vaccine (2 - Jansse n risk series) 01/18/2021 12/21/2020 Influenza Vaccine (#1) 2025 Breast Cancer Screening-Mammogram 05/04/2026 05/04/2025, 03/29/2024, 11/26/2022, Additional history exists Cervical Cancer Screening 05/15/20262024, 05/15/2025, 09/05/2022, Additional history exists Regular Well Visit/Exam 18-64 05/15/2026, 12/08/2023, 09/05/2022, Additional history exists Procedures Procedure Name Priority Date/Time Associated Diagnosis Comments PAP AND HIGH RISK HPV, REFLEX TO GENOTYPING Routine 05/15/2025 3:55 PM CDT Well woman exam HIGH RISK HPV DNA DETECTION WITH GENOTYPING Routine 05/15/2025 3:55 PM CDT Well woman exam SCREENING MAMMOGRAM BILATERAL W RICHAR W IMPLANTS Schedule Routine, Read Routine (OP Routine) 05/04/2025 3:31 PM CDT Screening mammogram, encounter for from Last 3 Months Results * High Risk HPV DNA Detection with Genotyping (Molecular component) (05/15/2025 3:55 PM CDT) HPV HR 16 Not Detected Not Detected [facility] Comment:Testing performed by : [facility], [address] [place] [address] HPV HR 18 Not Detected Not Detected [facility] Comment:Testing performed by : [facility], [address] [place]., [address] HPV HR Non 16/18 Not Detected Not Detected [facility] Comment: Interpretive Data Nucleic acid amplification for detection of high-risk Human Papilloma virus (HPV) is performed by the Mckenna Salima 6800 HPV test. This assay specifically detects HPV-16 and HPV-18 genotypes. The following HPV genotypes are detected as high-risk HPV: HPV-31, 33, 35, ,39, 45, 51, 52, 56, 58, 59, 66, and 68. This assay has been approved by the [place] Food and Drug Administration for detection of HPV in cervical specimens collected by a physician using an endocervical brush/spatula or cervical broom and placed in the ThinPrep Pap Test PreservCyt collection containers. The performance characteristics of this test have been verified by the [facility] Molecular Infectious Disease laboratory. Correlate with separately reported cytology results, as applicable. Interpretive data last revised 23 Testing performed by: [facility], [address] [place]., [address] Endocervical 05/15/2025 3:55 PM CDT 05/15/2025 9:49 PM CDT Narrative [facility] - 05/16/2025 7:44 PM CDT Clinical history and diagnosis->screen Number of vials->1 Testing type->Screening Last menstrual period (date if known)->PM Tim Chen MD LAB BODY FLUIDS AND STO OLS ORDERABLES Final Result [facility] [address] [facility] Department [place] [address] [facility] * Pap and High Risk HPV and Genotyping (Cytology Component) (05/15/2025 3:55 PM CDT) Thin prep (Pap test) 05/15/2025 3:55 PM CDT 05/17/2025 11:06 AM CDT Narrative PATHOLOGY [facility] - 05/19/2025 8:56 AM CDT EPIC results best viewed via link to PDF [facility] [address] [place], [place] [id number] Note to Patients: This report may contain [...] can answer questions and explain the details. CYTOPATHOLOGY REPORT FINAL Patient Name: ALE BLANCO Gender: F : 1965 (Age: 60) Address: [address] [place] [phone] [facility] #: [id number] Service: UNKNOWN Location: Patient Type: [facility] SPECIMEN Taken: 05/15/2025 Received: 05/17/2025 Accessioned: 05/17/2025 Reported: 05/19/2025 Physician(s): Tim Chen M.D. FINAL INTERPRETATION SOURCE OF SPECIMEN Liquid based Thin Prep pap with HPV: STATEMENT OF ADEQUACY - Satisfactory for evaluation - Endocervical cells/transformation zone sample present GENERAL CATEGORIZATION: - Negative for squamous intraepithelial lesion or malignancy Comments (Normal-Negative for High Risk HPV) HPV HR 16- Not detected HPV HR 18-Not detected HPV HR non 16/18- Not detected Interpretive Data Nucleic acid amplification for detection of high-risk Human Papilloma virus (HPV) is performed by the Mckenna Salima 6800 HPV test. This assay specifically detects HPV- 16 and HPV-18 genotypes. The following HPV genotypes are detected as high-risk HPV: HPV-31, 33, 35, 39, 45, 51, 52, 56, 58, 59, 66, and 68. This assay has been approved by the [place] Food and Drug Administration for detection of HPV in cervical specimens collected by a physician using an endocervical brush/spatula or cervical broom and placed in the ThinPrep Pap Test PreservCyt collection containers. The performance characteristics of this test have been verified by the [facility] Molecular Infectious Disease laboratory. Correlate with reported cytology results, as applicable. Interpretive data last revised 23 [facility]/05/19/2025 08:56 SANTOS Womack(ASCP) Report Electronically Reviewed and Signed Out By SANTOS Womack(ASCP) 05/19/2025 08:56:10 Cervicovaginal Cytology (Pap Test) Disclaimer: The Pap test is a screening test used to detect cervical cancer and its precursors; it is not a diagnostic procedure. False negative and false positive results do occur. Pap test results should be interpreted in the context of pertinent clinical information and biopsy results as indicated. [facility] Clinical Laboratory Improvement Amendments (CLIA) mandate that cytologic and histologic results be correlated for laboratory type disk quality control supervisor & improvement standards. FOR ALL HIGH-GRADE CASES we request submission of follow-up histological material and/or reports that have not been previously provided so that we may fulfill said required standards. Gross Description A. Liquid based Thin Prep pap with HPV: Cervical/vaginal - Screening ThinPrep Clinical Diagnosis and History Last Menstrual Period: PM The patient is a 60 year old female with screening. Report Images and scanned documents, if included only viewable in PDF version The performance characteristics of some immunohistochemical stains, in-situ hybridization and fluorescence in-situ hybridization tests and immunophenotyping by flow cytometry cited in this report (if any) were determined by the Surgical Pathology Department at [facility] as part of an ongoing air quality consultant program and in compliance with federally mandated [...] characteristics determined by the Surgical Pathology Department of [facility]. It has not been cleared or approved by the [place]. [place]. Food and Drug Administration. Tim Chen MD LAB CYTOLOGY ORDERABLES Final Result PATHOLOGY [facility] * Screening Mammogram Bilateral W Richar W Implants (05/04/2025 3:31 PM CDT) Anatomical Region Laterality Modality Breast Bilateral Mammography Impressions 05/04/2025 3:40 PM CDT BI-RADS ATLAS category (overall): 2 - Benign There is no mammographic evidence of malignancy. A 1 year screening mammogram is recommended. The patient has been or will be contacted. We recommend annual screening mammography for women at average risk of breast cancer beginning at age 40, based on guidelines of the [employer] (ACR Practice Parameter for the Performance of Screening and Diagnostic Mammography) and [employer]. For women with and elevated risk of breast cancer, please refer to the ACR Practice Parameter for specific screening recommendations. The patient will be entered into a reminder system with a target due date of 1 year for her next screening exam. Narrative 05/04/2025 3:40 PM CDT Screening Mammogram Bilateral W Richar W Implants: 05/04/25 The study was acquired using full field digital technology and interpreted from soft copy. 2D digital mammographic views, as well as 3D digital tomosynthesis were performed in the CC and MLO projections. CLINICAL: Screening mammogram, encounter for. No relevant medical history has been documented for this patient. History of breast cancer in Sister. No comparisons were made when reading this study. BREAST TISSUE: The breasts are heterogeneously dense, which may obscure small masses. FINDINGS: Bilateral breast subpectoral saline implants are stable in appearance and intact. The presence of implants limits the sensitivity of mammography. No suspicious masses, suspicious calcifications, or other suspicious findings are seen within either breast. There has been no suspicious change. Tim Chen MD IMG MAMMO PROCEDURES Fi nal Result from Last 3 Months Insurance [employer] ACCESS [facility] Care Teams Cable Reeler Relationship Specialty Start Date End Date Antonio Davidson MD [address] [address] PCP - General Family Medicine 07/18/20
[2025-06-02 14:08] LABS: Anti-CCP Ab, IgG/IgA 10 units (0-19)
== END 2025-06-01 13:49 | disposition home or self-care (01) ==
LOC: ANHLAB 13:50
PROVIDERS: PCP Nurse Practitioner Family; Visit Provider Internal Medicine
DX: R29.91 Unspecified symptoms and signs involving the musculoskeletal system (principal); M19.071 Primary osteoarthritis, right ankle and foot; M19.072 Primary osteoarthritis, left ankle and foot; M47.896 Other spondylosis, lumbar region
CPT/HCPCS: 72100; 72202; 73620; 86200